=== PATIENT | male | born 1955 | race Caucasian/White ===

== ENCOUNTER → 2022-11-22 | Outpatient (CLI) | payer MEDICARE, BC ==
[~2022-11-22] MED LIST: FURO20 PO; LEVSOD100 PO; LOSA25 PO; POTA10T PO; PRAV20 PO
== END ==
LOC: LAB SHORT 11:01
DX: L72.3 Sebaceous cyst (principal)
CPT/HCPCS: 87070; 87075; 87205

== ENCOUNTER → 2024-07-23 | Outpatient (CLI) | payer BC ==
[2024-07-23 11:31] LABS: BASOPHILS ABSOLUTE AUTO 0.04 K/mm3 (0.00-0.23); BASOPHILS PERCENT AUTO 1 % (0-2); EOSINOPHILS ABSOLUTE AUTO 0.03 K/mm3 (0.00-0.68); EOSINOPHILS PERCENT AUTO 1 % (0-6); Hematocrit 44.7 % (37.0-53.0); Hemoglobin 15.2 g/dL (13.5-17.5); IMMATURE GRAN ABSOLUTE AUTO 0.02 K/mm3 (0.00-0.10); IMMATURE GRAN PERCENT AUTO 0 % (0-1); LYMPHOCYTES ABSOLUTE AUTO 2.18 K/mm3 (0.84-5.20); LYMPHOCYTES PERCENT AUTO 39 % (21-46); MONOCYTES ABSOLUTE AUTO 0.47 K/mm3 (0.16-1.47); MONOCYTES PERCENT AUTO 8 % (4-13); Mean Corpuscular HGB 33.1 pg (26.0-34.0); Mean Corpuscular Volume 97 fL (80-100); NEUTROPHILS ABSOLUTE AUTO 2.86 K/mm3 (1.96-9.15); NEUTROPHILS PERCENT AUTO 51 % (41-73); Platelet Count 160 K/mm3 (150-400); RDW Coefficient Variation 12.6 % (11.7-14.2); RDW Standard Deviation 44.8 fL (35.1-46.3); Red Blood Cell Count 4.59 M/mm3 (4.30-5.90)
[2024-07-23 12:00] LABS: Alanine Aminotransfer (ALT/SGP 16 U/L (12-78); Albumin/Globulin Ratio 1.1 (0.8-1.8); Alk Phos 72 U/L (50-136); Anion Gap 8 mmol/L (3-11); Aspartate Aminotrans (AST/SGOT 14 U/L (12-37); Blood Urea Nitrogen 18 mg/dL (8-24); Bun/Creatinine Ratio 24.7 (12.0-20.0); CHOL/HDL RATIO 3.3; CO2, Blood 27 mmol/L (21-32); Calcium, Blood 9.1 mg/dL (8.5-10.1); Chloride, Blood 106 mmol/L (98-108); Cholesterol 174 mg/dL (50-200); Creatinine, Blood 0.73 mg/dL (0.60-1.20); Globulin, Blood 3.6 g/dL (2.2-4.0); Glomerular Filtration Rate 98 (60-); Glucose, Blood 113 mg/dL (70-99); HDL Cholesterol 53 mg/dL (>39); Low Density Lipoprotein Chol 105 mg/dL (0-110); Prostate Specific Antigen 0.761 ng/mL (0.000-4.000); Sodium, Blood 137 mmol/L (136-145); Total Protein, Blood 7.6 g/dL (6.4-8.2); Triglycerides 79 mg/dL (30-160); Very Low Density Lipoprot Chol 15 mg/dL (6-32)
[2024-07-23 14:14] LABS: Microalb/Creat Ratio UR, Rand 6.281 mg/g (0.000-30.000); Microalbumin, Random Urine 8.04 mg/L (0.000-20.000)
[2024-07-24 18:29] LABS: HEPATITIS C AB CIA INTERP Negative (Negative); HEPATITIS C ANTIBODY CIA INDEX <0.02 IV
== END | disposition home or self-care (01) ==
LOC: LAB SHORT 10:40 → LAB 10:40
PROVIDERS: Family Medicine
DX: Z00.01 Encounter for general adult medical examination with abnormal findings (principal); Z12.5 Encounter for screening for malignant neoplasm of prostate; Z13.220 Encounter for screening for lipoid disorders; Z11.59 Encounter for screening for other viral diseases; E03.8 Other specified hypothyroidism; I10 Essential (primary) hypertension; R73.03 Prediabetes
CPT/HCPCS: 36415; 80053; 80061; 82043; 82570; 83036; 83525; 84443; 85025; 86803; G0103